=== PATIENT | male | born 2000 | race African-American/Black ===

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

== ENCOUNTER 2019-06-10 19:04 | Emergency (ER) | payer OTHER ==
[~2019-06-10] VITALS: Ht 170.1 cm; Wt 85.3 kg
[2019-06-10] MEDS ORDERED: AUGMENTIN 875875 MG PO (19:30)
== END 2019-06-10 20:00 | disposition home or self-care (01) ==
LOC: ED 19:04
DX: S30.871A Other superficial bite of abdominal wall, initial encounter (principal); Z29.14 Encounter for prophylactic rabies immune globulin; W54.0XXA Bitten by dog, initial encounter; Y93.89 Activity, other specified; Y92.89 Other specified places as the place of occurrence of the external cause; Y99.8 Other external cause status

== ENCOUNTER 2019-06-18 13:11 | Emergency (ER) | payer OTHER ==
[~2019-06-18] VITALS: Ht 170.1 cm; Wt 86.2 kg
[~2019-06-18 13:11] MED LIST: AUGMENTIN 875875 MG PO
== END 2019-06-18 14:05 | disposition home or self-care (01) ==
LOC: ED 13:11
DX: Z23 Encounter for immunization (principal); Z79.2 Long term (current) use of antibiotics

== ENCOUNTER → 2020-04-13 | Outpatient (CLI) | payer OTHER ==
[2020-04-13 10:04] LABS: BASO % 0.6 % (0.0-1.0); EOS # 0.2 10*3/uL (0.0-0.4); EOS % 2.4 % (1.0-4.0); HEMATOCRIT 50.1 % (42.0-52.0); LYMPH # 2.1 10*3/uL (1.3-4.4); LYMPH % 30.3 % (27.0-41.0); MEAN CELL VOLUME 88.5 fl (80.0-94.0); MEAN CORPUSCULAR HGB 29.2 pg (27.0-31.0); MEAN CORPUSCULAR HGB CONC 32.9 g/dl (33.0-37.0); MEAN PLATELET VOLUME 10.4 fl (9.6-12.3); MONO # 0.6 10*3/uL (0.1-1.0); MONO % 8.2 % (3.0-9.0); NEUT % 58.4 % (47.0-73.0); PLATELET COUNT AUTOMATED 202 10*3/uL (130-400); RED BLOOD COUNT 5.66 10*6/uL (4.50-5.90); RED CELL DISTRI WIDTH 12.3 % (0-14.5); WHITE BLOOD COUNT 6.8 10*3/uL (4.8-10.8)
[2020-04-13 10:21] LABS: ALBUMIN 3.9 gm/dl (3.1-4.5); ALKALINE PHOSPHATASE 67 U/L (45-117); BUN 15 mg/dl (7-24); CHLORIDE 106 mmol/L (98-107); CPK 560 U/L (39-308); CREATININE 1.17 mg/dL (0.70-1.30); SGOT/AST 30 IU/L (3-35); SGPT/ALT 34 U/L (12-78); SODIUM 140 mmol/L (136-145); TOTAL PROTEIN 7.1 gm/dL (6.4-8.2)
[2020-04-13 13:06] LABS: BILIRUBIN NEGATIVE (NEGATIVE); BLOOD NEGATIVE (NEGATIVE); CLARITY CLEAR (CLEAR); COLOR YELLOW (YELLOW); GLUCOSE NEGATIVE (NEGATIVE); KETONE NEGATIVE (NEGATIVE); LEUKO ESTERASE NEGATIVE (NEGATIVE); MUCOUS TRACE; NITRITE NEGATIVE (NEGATIVE); RBC 0-2 rbc/hpf (0-2); SPECIFIC GRAVITY 1.025 (1.005-1.030); UROBILINOGEN 0.2 E.U./dl (0.2-1.0)
[2020-04-15 16:08] LABS: CREATININE, RANDOM URINE 175.1 mg/dL (Not Estab.)
[2020-04-19 09:06] LABS: METANEPH-CREAT RATIO 0.2 (0.0-1.0)
== END | disposition home or self-care (01) ==
LOC: LAB 09:36
PROVIDERS: Pediatrics
DX: I10 Essential (primary) hypertension (principal)

== ENCOUNTER → 2020-04-26 | Outpatient (CLI) | payer OTHER | END | disposition home or self-care (01) | LOC: CARD 11:30 | DX: R01.1 Cardiac murmur, unspecified (principal) ==

== ENCOUNTER 2021-07-16 19:21 | Emergency (ER) | payer OTHER ==
[~2021-07-16] VITALS: Ht 170.1 cm; Wt 88.5 kg
== END 2021-07-16 22:41 | disposition home or self-care (01) ==
LOC: ED 19:21
DX: U07.1 COVID-19 (principal); H10.9 Unspecified conjunctivitis; J06.9 Acute upper respiratory infection, unspecified

== ENCOUNTER 2021-08-17 14:35 | Emergency (ER) | payer OTHER ==
[~2021-08-17] VITALS: Ht 170.1 cm; Wt 89.8 kg
== END 2021-08-17 17:28 | disposition home or self-care (01) ==
LOC: ED 14:35
DX: S80.11XA Contusion of right lower leg, initial encounter (principal); F17.200 Nicotine dependence, unspecified, uncomplicated; X50.0XXA Overexertion from strenuous movement or load, initial encounter; Y93.B9 Activity, other involving muscle strengthening exercises; Y92.39 Other specified sports and athletic area as the place of occurrence of the external cause; Y99.8 Other external cause status

== ENCOUNTER → 2022-12-27 | Outpatient (CLI) | payer OTHER | END | disposition home or self-care (01) | LOC: MRI 12-12 09:00 | PROVIDERS: ATTEND Nurse Practitioner Family | DX: G93.9 Disorder of brain, unspecified (principal) ==